=== PATIENT | male | born 1960 | race Caucasian/White ===

== ENCOUNTER 2016-09-13 22:34 | Emergency (ER) | payer OTHER ==
[~2016-09-13] VITALS: Ht 185.4 cm; Wt 103.5 kg
[~2016-09-13 22:34] MED LIST: BUSPAR15 MG PO; COUMADIN7.5 MG PO; FENTANYL1 EAC5 TD; FLEXERIL5 MG PO; HYDROXYZINE PAM25 MG PO; KEFLEX500 MG PO; LIDODERM 5% P1 PATCH TD; MORPHINE SULFAT15 M1 PO; MOTRIN600 MG PO; MOTRIN800 MG PO; NAPROXEN500 MG PO; NEXIUM40 MG PO; OXYCODONE HCL15 MG PO; PERCOCET 5/31 TABLET PO; PERCOCET 7.51 TABLET PO; VALIUM5 MG PO; WARFARIN SODIUM1 MG PO; WARFARIN SODIUM5 MG PO; XANAX XR1 MG PO; XANAX0.5 MG PO
[2016-09-13 22:39] VITALS: BP 129/78
== END 2016-09-13 22:45 | disposition left against medical advice (07) ==
LOC: EME 22:34
DX: S61.210A Laceration without foreign body of right index finger without damage to nail, initial encounter (principal); W45.8XXA Other foreign body or object entering through skin, initial encounter; Z86.711 Personal history of pulmonary embolism; Z86.718 Personal history of other venous thrombosis and embolism; Z79.01 Long term (current) use of anticoagulants; Z53.21 Procedure and treatment not carried out due to patient leaving prior to being seen by health care provider

== ENCOUNTER 2016-11-26 04:14 | Emergency (ER) | payer OTHER ==
[~2016-11-26] VITALS: Ht 185.4 cm; Wt 103.8 kg
[2016-11-26 04:45] LABS: HEMATOCRIT 44.6 % (38.0-50.0); MCHC 32.7 G/DL (30.0-36.0); MCV 82.6 FL (86-99); MEAN PLAT.VOLUME 8.5 uM^3 (9.0-12.4); PLATELET COUNT 232 K/uL (156-360); RBC DIS.WIDTH-CV 13.5 % (11.8-14.6); RBC DIS.WIDTH-SD 40.6 % (39-53); WHITE BLOOD COUNT 7.5 K/uL (4.1-10.2)
[2016-11-26] MEDS ORDERED: MIRALAX255 GM PO (04:59)
[2016-11-26 05:01] LABS: CHLORIDE 106 mEq/L (99-109); POTASSIUM 3.9 mEq/L (3.7-5.4); SODIUM 139 mEq/L (136-147)
[2016-11-26 05:03] LABS: GLUCOSE 98 mg/dL (70-99)
[2016-11-26 05:04] LABS: ANION GAP 9 MEQ/L (2-14)
[2016-11-26 05:05] LABS: TOTAL BILIRUBIN 0.5 mg/dL (0.0-1.0)
[2016-11-26 05:07] LABS: ALKALINE PHOSPHATASE 68 IU/L (3-129); GFR ESTIMATE (CALCULATED) 52 mL/min/
[2016-11-26 05:08] VITALS: BP 133/88
[2016-11-26 05:08] LABS: UREA NITROGEN (BUN) 16 mg/dL (9-23)
[2016-11-26 05:10] LABS: LIPASE 57 U/L (1.0-51.0)
== END 2016-11-26 05:08 | disposition home or self-care (01) ==
LOC: EME 04:14
DX: R10.84 Generalized abdominal pain (principal); K59.00 Constipation, unspecified; Z79.01 Long term (current) use of anticoagulants; Z86.718 Personal history of other venous thrombosis and embolism
CPT/HCPCS: 80053; 81003; 83690; 85027; 99281; 99284

== ENCOUNTER 2017-10-20 00:35 | Emergency (ER) | payer OTHER ==
[~2017-10-20] VITALS: Ht 185.4 cm; Wt 107.8 kg
[~2017-10-20 00:35] MED LIST changes: +MIRALAX255 GM PO
[2017-10-20 01:20] LABS: HEMATOCRIT 41.1 % (38.0-50.0); HEMOGLOBIN 13.8 G/DL (12.5-16.6); MCH 27.4 PG (29.0-34.0); MCHC 33.6 G/DL (30.0-36.0); MCV 81.7 FL (86-99); PLATELET COUNT 230 K/uL (156-360); RBC DIS.WIDTH-SD 41.2 % (39-53); RED BLOOD COUNT 5.03 M/uL (4.00-5.50); WHITE BLOOD COUNT 6.9 K/uL (4.1-10.2)
[2017-10-20 01:26] LABS: INTER. NORMALIZED RATIO 2.2
[2017-10-20 01:28] LABS: ALBUMIN 4.1 g/dL (3.2-4.8); CHLORIDE 106 mEq/L (99-109); POTASSIUM 4.5 mEq/L (3.7-5.4)
[2017-10-20 01:29] LABS: PTT 36.4 SEC (25-37); SODIUM 140 mEq/L (136-147)
[2017-10-20 01:31] LABS: GLUCOSE 106 mg/dL (70-99); TOTAL PROTEIN 7.7 g/dL (6.4-8.3)
[2017-10-20 01:33] LABS: TOTAL BILIRUBIN 0.5 mg/dL (0.0-1.0)
[2017-10-20 01:34] LABS: ALKALINE PHOSPHATASE 63 IU/L (3-129)
[2017-10-20 01:35] LABS: CREATININE 1.3 mg/dL (0.6-1.3); GFR ESTIMATE (CALCULATED) > 59 mL/min/ (58.99-99999)
[2017-10-20 01:36] LABS: AST (GOT) 19 IU/L (2-34); DIRECT BILIRUBIN 0.2 mg/dL (0.0-0.3); UREA NITROGEN (BUN) 18 mg/dL (9-23)
[2017-10-20 01:37] LABS: ALT (GPT) 20 IU/L (3-49)
[2017-10-20 01:38] LABS: LIPASE 51 U/L (1.0-51.0)
[2017-10-20 01:43] LABS: TROP-I INTERPRETATION NEGATIVE; TROPONIN-I < 0.01 ng/mL (0.0-0.30)
[2017-10-20] MEDS ORDERED: PROVENTIL HFA6.7 GM IH (02:57)
[2017-10-20 03:13] VITALS: BP 138/87
== END 2017-10-20 03:14 | disposition home or self-care (01) ==
LOC: EME 00:35
DX: R07.9 Chest pain, unspecified (principal); R06.00 Dyspnea, unspecified; Z86.718 Personal history of other venous thrombosis and embolism; Z86.711 Personal history of pulmonary embolism; Z79.01 Long term (current) use of anticoagulants
CPT/HCPCS: 71046; 80048; 80076; 83690; 84484; 85027; 85610; 85730; 93005; 94640; 99281; 99284